=== PATIENT | female | born 1980 | race Two or more races ===

== ENCOUNTER 2017-06-17 15:10 | Emergency (ER) | payer SELFPAY ==
[~2017-06-17] VITALS: Ht 149.9 cm; Wt 75.0 kg
[2017-06-17] MEDS ORDERED: IBUPROFEN 400MG TABLET PO ONE (15:45)
[2017-06-17 18:13] VITALS: BP 129/74
== END 2017-06-17 18:14 | disposition home or self-care (01) ==
LOC: ER 15:10
DX: H60.91 Unspecified otitis externa, right ear (principal)
CPT/HCPCS: 99283